=== PATIENT | female | born 1980 | race American Indian/Alaskan Native ===

== ENCOUNTER 2018-06-16 22:29 | Observation (INO) | payer BC, OTHER ==
[~2018-06-16] VITALS: Ht 157.5 cm; Wt 72.6 kg
[~2018-06-16 22:29] MED LIST: CHOLESTEROL MED
[2018-06-16] MEDS ORDERED: METOPROLOL TARTRATE 25 MG TAB PO ONE (22:45)
[2018-06-16] MEDS ORDERED: ASPIRIN 81 MG CHEW TAB PO ONE (22:45)
[2018-06-16] MEDS ORDERED: METOPROLOL TARTRATE 25 MG TAB PO STA (23:29)
[2018-06-16 23:47] LABS: BASOPHILS # (AUTO) 0.1 (0.0-0.1); BASOPHILS % 0.4 % (0.0-1.0); EOSINOPHILS # (AUTO) 0.4 (0.0-0.4); EOSINOPHILS % 2.9 % (0.0-6.0); HEMATOCRIT 34.2 % (34.2-44.1); HEMOGLOBIN 11.4 g/dL (12.0-16.0); LYMPHOCYTES # (AUTO) 3.9 (1.0-3.2); LYMPHOCYTES % 32.7 % (18.0-39.1); MEAN CORPUSCULAR HEMOGLOBIN 27.9 pg (28-32); MEAN CORPUSCULAR HGB CONC 33.3 g/dL (31-35); MEAN CORPUSCULAR VOLUME 83.6 fL (81-99); MONOCYTES # (AUTO) 0.6 (0.2-0.8); MONOCYTES % 4.8 % (4.4-11.3); NEUTROPHILS % 58.9 % (38.7-80.0); PLATELET COUNT 311 x10e3/uL (140-360); RED BLOOD COUNT 4.09 x10e6/uL (3.6-5.1); RED CELL DISTRIBUTION WIDTH 13.2 % (11.7-14.4)
[2018-06-16 23:49] LABS: BILIRUBIN,URINE NEGATIVE (NEGATIVE); CLARITY,URINE CLEAR (CLEAR); COLOR,URINE YELLOW (YELLOW); KETONES,URINE NEGATIVE (NEGATIVE); LEUKOCYTE ESTERASE ,URINE NEGATIVE (NEGATIVE); NITRITE,URINE NEGATIVE (NEGATIVE); PROTEIN,URINE DIPSTICK 3+ (NEGATIVE); URINE UROBILINOGEN 0.2 mg/dL (0.2 - 1)
[2018-06-16 23:50] LABS: PREGNANCY TEST, URINE NEGATIVE (NEGATIVE)
[2018-06-16 23:53] LABS: INR 0.97; PARTIAL THROMBOPLASTIN TIME 30.9 seconds (23.8-35.5); PROTHROMBIN TIME 12.1 seconds (11.9-14.5)
[2018-06-17] VITALS (8 sets, daily range): BP systolic 121–138; BP diastolic 64–82
[2018-06-17] LABS: ALANINE AMINOTRANSFERASE 21 IU/L (0-55); ALBUMIN 3.5 g/dL (3.5-5.0); ALBUMIN/GLOBULIN RATIO 0.8 (0.8-2.0); ALKALINE PHOSPHATASE 95 IU/L (40-150); ANION GAP 16.3 mmol/L (8-16); BLOOD UREA NITROGEN 15 mg/dL (7-26); BUN/CREATININE RATIO 19 (6-25); CALCIUM 9.1 mg/dL (8.4-10.2); CARBON DIOXIDE 21 mmol/L (22-29); CHLORIDE 102 mmol/L (98-107); CREATINE KINASE 117 IU/L (29-168); CREATININE, SERUM 0.77 mg/dL (0.57-1.11); EST GLOMERULAR FILTRATION RATE > 60 ML/MIN (60-); GLUCOSE 237 mg/dL (74-118); MAGNESIUM 1.6 MG/DL (1.3-2.1); POTASSIUM 3.3 mmol/L (3.5-5.1); SODIUM 136 mmol/L (136-145)
[2018-06-17 00:05] LABS: BACTERIA,URINE RARE /HPF; EPITHELIAL CELLS,URINE FEW /LPF; RBC,URINE 0-5 /HPF (0-5); WBC,URINE (MAN) 0-5 /HPF (0-5)
[2018-06-17 00:19] LABS: THYROID STIMULATING HORMONE 10.211 uIU/mL (0.350-4.940)
--- NOTE | 2018-06-17 00:25 | Diagnostic Imaging Report ---
EXAMINATION: CHEST 2 VIEWS INDICATION: Chest pain, palpitations COMPARISON: 02/09/2016 FINDINGS: TUBES and LINES: None. LUNGS: Lungs are well inflated. Lungs are clear. There is no evidence of pneumonia or pulmonary edema. PLEURA: No pleural effusion or pneumothorax. HEART AND MEDIASTINUM: The cardiomediastinal silhouette is unremarkable. BONES AND SOFT TISSUES: No acute osseous lesion. Soft tissues are unremarkable. UPPER ABDOMEN: No free air under the diaphragm. IMPRESSION: No acute thoracic abnormality. Signed by: Dr. John Barajas M.D. on 06/17/2018 12:21 AM
[2018-06-17] MEDS ORDERED: POTASSIUM CHLORIDE 20 MEQ TAB CR PO STA (01:04)
[2018-06-17] MEDS ORDERED: MORPHINE SULFATE 2 MG/ML SYR IV PRN (03:15)
[2018-06-17] MEDS ORDERED: DEXTROSE 50% SYRINGE 50 ML IV PRN (03:15)
[2018-06-17] MEDS ORDERED: FAMOTIDINE 20 MG/2 ML VIAL IV SCH ×2 (03:15→11:00)
[2018-06-17] MEDS ORDERED: ONDANSETRON HCL INJ 2 MG/ML VIAL IV PRN (03:15)
[2018-06-17 03:20] LABS: CREATINE KINASE MB 1.3 ng/mL (0-5.0)
[2018-06-17] MEDS: METOPROLOL TARTRATE 25 MG TAB PO SCH ×2 (09:30→20:41)
[2018-06-17] MEDS: INSULIN REGULAR, HUMAN 100 UNIT/1 ML 3ML VIAL SQ SCH ×4 (09:30→20:36)
[2018-06-17 10:20] LABS: CREATINE KINASE 87 IU/L (29-168)
[2018-06-17] MEDS: FAMOTIDINE 20 MG/2 ML VIAL IV SCH ×2 (10:22→22:00)
[2018-06-17] MEDS ORDERED: LEVOTHYROXINE SODIUM 50 MCG TAB PO ONE (17:00)
[2018-06-17] MEDS: METFORMIN HCL 500 MG TAB PO SCH (17:06)
[2018-06-17] MEDS: ASPIRIN 81 MG ENTERIC COATED PO SCH (17:06)
--- NOTE | 2018-06-17 17:42 | History and Physical ---
She is a 37-year-old female patient who presented to the emergency room with the complaint of chest heaviness and pressure in the chest for 2 days' duration. HISTORY OF PRESENT ILLNESS: Mr. Pa is a 37-year-old female patient with history of diabetes mellitus, hypertension, hyperlipidemia and hypothyroidism who presented to the emergency room with the complaint of retrosternal chest tightness, pressure, pain and palpitation and feeling like her heart is fluttering. The patient was feeling like her heart was racing, and the pain was referring to the back in the intrascapular area. ALLERGIES: NO KNOWN DRUG ALLERGIES. PAST MEDICAL HISTORY: Hypertension, hyperlipidemia, hypothyroidism, diabetes mellitus. REVIEW OF SYSTEMS: Chest tightness and chest pain. The patient also has a cough. SOCIAL HISTORY: Denies smoking and denies using alcohol. FAMILY HISTORY: Hypertension, diabetes mellitus. PHYSICAL EXAMINATION VITAL SIGNS: Temperature 99.3, pulse rate 76, blood pressure 126/68, respirations 22. HEENT: Normocephalic, atraumatic. NECK: No JVD, no lymphadenopathy. LUNGS: Bilateral equal air entry; no rales, no rhonchi. HEART: S1, S2, regular, no murmur, no gallop. ABDOMEN: Soft, bowel sounds present. No organomegaly. NEUROLOGIC: Nonfocal. No neurologic deficit. ADMITTING IMPRESSION AND DIAGNOSIS 1. Chest pain. 2. Diabetes mellitus. 3. Hypertension. 4. Hyperlipidemia. 5. Hypothyroidism. PLAN: The patient will be admitted with the above diagnoses. The patient has a low potassium. Will give potassium supplement. Will start on Lipitor, metoprolol, aspirin, levothyroxine and metformin. Will obtain cardiology consultation with Dr. Pineda for possible stress test tomorrow. Job#: [id number]
[2018-06-17] MEDS ORDERED: ATORVASTATIN 20 MG TAB PO SCH (21:00)
[2018-06-17] MEDS: GUAIFENESIN 600MG/DEXTROMETHORPHAN 30MG TABSR PO SCH (22:00)
[2018-06-18] VITALS: BP 129/80
[2018-06-18 04:00] VITALS: BP 129/62
[2018-06-18 05:26] LABS: BASOPHILS # (AUTO) 0.1 (0.0-0.1); BASOPHILS % 0.5 % (0.0-1.0); EOSINOPHILS # (AUTO) 0.4 (0.0-0.4); HEMOGLOBIN 12.2 g/dL (12.0-16.0); LYMPHOCYTES # (AUTO) 4.7 (1.0-3.2); MEAN CORPUSCULAR HEMOGLOBIN 27.9 pg (28-32); MEAN CORPUSCULAR VOLUME 84.7 fL (81-99); MONOCYTES # (AUTO) 0.6 (0.2-0.8); MONOCYTES % 5.4 % (4.4-11.3); NEUTROPHILS # (AUTO) 4.9 (2.1-6.9); NEUTROPHILS % 45.9 % (38.7-80.0); PLATELET COUNT 317 x10e3/uL (140-360); RED BLOOD COUNT 4.37 x10e6/uL (3.6-5.1); RED CELL DISTRIBUTION WIDTH 13.2 % (11.7-14.4)
[2018-06-18 05:49] LABS: ALANINE AMINOTRANSFERASE 20 IU/L (0-55); ALBUMIN 3.3 g/dL (3.5-5.0); ALBUMIN/GLOBULIN RATIO 0.8 (0.8-2.0); ALKALINE PHOSPHATASE 87 IU/L (40-150); ANION GAP 15.9 mmol/L (8-16); BLOOD UREA NITROGEN 12 mg/dL (7-26); BUN/CREATININE RATIO 16 (6-25); CALCIUM 9.7 mg/dL (8.4-10.2); CARBON DIOXIDE 23 mmol/L (22-29); CHLORIDE 102 mmol/L (98-107); CREATININE, SERUM 0.77 mg/dL (0.57-1.11); EST GLOMERULAR FILTRATION RATE > 60 ML/MIN (60-); GLUCOSE 180 mg/dL (74-118); POTASSIUM 3.9 mmol/L (3.5-5.1); SODIUM 137 mmol/L (136-145)
[2018-06-18] MEDS ORDERED: LEVOTHYROXINE SODIUM 50 MCG TAB PO ONE (06:00)
[2018-06-18 06:12] LABS: CHOLESTEROL 205 MD/DL (0-199); HDL CHOLESTEROL 51 MG/DL (40-60); TRIGLYCERIDES 448 MG/DL (0-149)
[2018-06-18 07:15] VITALS: BP 117/72
[2018-06-18] MEDS: INSULIN REGULAR, HUMAN 100 UNIT/1 ML 3ML VIAL SQ SCH ×2 (07:30→11:30)
--- NOTE | 2018-06-18 07:30 | Consultation ---
DATE OF CONSULTATION: REASON FOR CONSULT: Chest pain. HISTORY OF PRESENT ILLNESS: Ms. Pa is a 37-year-old lady with a past medical history as listed below, apparently developed chest pain about 3 days back. States it lasted for about 15 minutes or so. She also had some palpitations off and on. [place] like her heart is fluttering. Denies any shortness of breath or diaphoresis. She feels better. REVIEW OF SYSTEMS CONSTITUTIONAL: Has some fatigue and weakness. HEENT: No headache, blurring of vision, seizures, syncope. CARDIOVASCULAR: Had chest pain and palpitations noted. No dyspnea, orthopnea or PND. RESPIRATORY: No cough, fever, expectoration. GI: No abdominal pain, vomiting, diarrhea. : No dysuria, frequency or incontinence. ALLERGIES: NO KNOWN DRUG ALLERGIES. MEDICATIONS: See list. PAST MEDICAL HISTORY: History of hypertension, history of hyperlipidemia. SOCIAL HISTORY: Does not smoke or drink. FAMILY HISTORY: Noncontributory. PHYSICAL EXAMINATION GENERAL: Alert and nourished lady. Alert, oriented and not in any obvious distress. VITALS: Heart rate 78, blood pressure 129/80, respiratory rate 18, temperature 97.1. HEENT: Atraumatic. NECK: No JVD, bruits, thyromegaly, or lymphadenopathy. CARDIOVASCULAR: First and 2nd heart sounds heard. No murmurs, rubs or gallops appreciated. CHEST: Clear to auscultation. ABDOMEN: Soft and nontender. EXTREMITIES: No edema. LABS: EKG shows sinus rhythm at 99 beats per minute. Normal axis. Normal intervals. Prolonged QT interval. Nonspecific ST-T changes. Sodium is 137, potassium 3.9, chloride 102, bicarb 23, BUN 12, creatinine 0.7. Hemoglobin is 12.2, hematocrit 37, platelets of 317,000, and white count is 10.6. Troponins are normal. Triglycerides are 448, cholesterol 205, HDL is 51. IMPRESSION 1. Chest pain. 2. Palpitations. 3. Hypertension. 4. Hypothyroidism. 5. New-onset diabetes mellitus. 6. Hyperlipidemia. PLAN 1. Cardiac enzymes are normal. 2. No further episode of chest pain. 3. Will get an echocardiogram to assess LV function and valvular function. 4. Will schedule her for Lexiscan stress test. 5. Continue with current medications. 6. Discussed my impression and plan of management with the patient, and she understands. As always, I appreciate and thank you very much for this referral. Continue with current medications, including aspirin, statin and beta blockers. Job#: [id number] MISTY
[2018-06-18] MEDS: METOPROLOL TARTRATE 25 MG TAB PO SCH (07:45)
[2018-06-18] MEDS: METFORMIN HCL 500 MG TAB PO SCH (07:45)
[2018-06-18] MEDS: GUAIFENESIN 600MG/DEXTROMETHORPHAN 30MG TABSR PO SCH (07:46)
[2018-06-18] MEDS: ASPIRIN 81 MG ENTERIC COATED PO SCH (07:46)
[2018-06-18 08:31] VITALS: BP 117/72
[2018-06-18] MEDS ORDERED: REGADENOSON 0.4 MG/5 ML SYR IV ONE (09:10)
[2018-06-18] MEDS: FAMOTIDINE 20 MG/2 ML VIAL IV SCH (11:04)
[2018-06-18 11:34] VITALS: BP 144/84
--- NOTE | 2018-06-18 13:10 | Discharge Summary ---
This 37-year-old female patient presented to the emergency room with complaint of chest pain. ADMITTING IMPRESSION AND DIAGNOSES 1. Chest pain, rule out angina. 2. Diabetes mellitus. 3. Hyperlipidemia. 4. Hypertension. 5. Bronchitis. HOSPITAL COURSE SUMMARY: The patient was admitted with the above diagnoses. The patient had serial EKGs and cardiac enzymes and cardiology evaluation done by Dr. Pineda. The patient will be getting a stress test today. Depending on the stress test results, the patient will have further course. If the stress test is negative, the patient will be discharged home and will be followed up as an outpatient. The patient will be started on metformin 500 mg twice a day, Lipitor 20 mg once a day, Levoxyl 75 mcg once a day, and losartan 50 mg once a day. LUIS MIGUEL GOODSON MD Job#: [id number]
--- NOTE | 2018-06-25 09:21 | Cardiology Report ---
DATE OF STUDY: June 18, 2018 LEXISCAN NUCLEAR STRESS TEST INDICATIONS: Chest pain. DESCRIPTION OF PROCEDURE: After informed consent, the patient was brought to the stress lab. She was given 10 mCi of technetium-99 Myoview, and myocardial perfusion SPECT images obtained in the horizontal, long and short axis, and vertical axis views. Subsequently, the patient was given 0.4 mg Lexiscan over 10 seconds. Patient was given 30 mCi of technetium-99 Myoview, and myocardial perfusion SPECT image obtained in the horizontal, long and short axis, vertical axis view. Gaited images were true also obtained. Patient tolerated the procedure without any complications. REPORT: Baseline EKG shows 66 beats per minute. Normal axis. Normal intervals. No acute ST-T changes. PARAMETERS 1. Resting heart rate is 98 beats per minute. 2. Maximum heart rate is 129 beats per minute. 3. Resting blood pressure is 115/58 mmHg. 4. Maximum blood pressure 150/61 mmHg. REASON FOR TERMINATION: End-point attained. INTERPRETATION 1. Negative chest pain. 2. Negative for arrhythmias. 3. Blood pressure response consistent with Lexiscan. 4. Borderline ST-T changes seen during Lexiscan infusion compared to baseline. 5. Analysis and SPECT images reveals uniform radioisotope uptake in without any significant perfusion defects. CONCLUSION 1. No evidence of significant ischemia or infarction on this study. 2. No wall motion abnormalities. 3. Overall ejection fraction is 63%. Job#: [id number] MISTY
== END 2018-06-18 13:58 | disposition home or self-care (01) ==
LOC: ER 22:29 → ERHOLD 06-17 03:28 → MED/SURG 06-17 04:17
PROVIDERS: ADMIT Internal Medicine; ATTEND Internal Medicine
DX: R07.9 Chest pain, unspecified (principal); R00.2 Palpitations; E11.65 Type 2 diabetes mellitus with hyperglycemia; I10 Essential (primary) hypertension; E03.9 Hypothyroidism, unspecified; E78.5 Hyperlipidemia, unspecified; E11.9 Type 2 diabetes mellitus without complications; Z91.14 Patient's other noncompliance with medication regimen; J40 Bronchitis, not specified as acute or chronic
CPT/HCPCS: 36415 ×3; 71046; 78452; 80053 ×2; 80061; 81001; 81025; 82550 ×2; 82553 ×2; 82948 ×2; 83036; 83735; 83880; 84443; 84484 ×2; 85025 ×2; 85379; 85610; 85730; 87086; 93005 ×2; 93017; 99284; A9502; G0378 ×2

== ENCOUNTER 2019-05-31 16:41 | Emergency (ER) | payer OTHER ==
[~2019-05-31] VITALS: Ht 157.5 cm; Wt 72.6 kg
[2019-05-31 17:21] LABS: BASOPHILS % 0.4 % (0.0-1.0); EOSINOPHILS # (AUTO) 0.3 (0.0-0.4); EOSINOPHILS % 3.4 % (0.0-6.0); HEMATOCRIT 33.8 % (34.2-44.1); HEMOGLOBIN 11.2 g/dL (12.0-16.0); LYMPHOCYTES # (AUTO) 3.9 (1.0-3.2); LYMPHOCYTES % 44.1 % (18.0-39.1); MEAN CORPUSCULAR HGB CONC 33.1 g/dL (31-35); MEAN CORPUSCULAR VOLUME 81.4 fL (81-99); MONOCYTES # (AUTO) 0.5 (0.2-0.8); MONOCYTES % 5.1 % (4.4-11.3); NEUTROPHILS # (AUTO) 4.2 (2.1-6.9); NEUTROPHILS % 46.8 % (38.7-80.0); PLATELET COUNT 254 x10e3/uL (140-360); RED BLOOD COUNT 4.15 x10e6/uL (3.6-5.1); RED CELL DISTRIBUTION WIDTH 13.7 % (11.7-14.4)
[2019-05-31 17:42] LABS: ALANINE AMINOTRANSFERASE 20 IU/L (0-55); ALBUMIN 3.4 g/dL (3.5-5.0); ALBUMIN/GLOBULIN RATIO 0.9 (0.8-2.0); ALKALINE PHOSPHATASE 99 IU/L (40-150); AMYLASE 58 U/L (25-125); ANION GAP 17.1 mmol/L (8-16); BLOOD UREA NITROGEN 10 mg/dL (7-26); BUN/CREATININE RATIO 13 (6-25); CALCIUM 9.1 mg/dL (8.4-10.2); CARBON DIOXIDE 21 mmol/L (22-29); CHLORIDE 100 mmol/L (98-107); CREATININE, SERUM 0.77 mg/dL (0.57-1.11); EST GLOMERULAR FILTRATION RATE > 60 ML/MIN (60-); GLUCOSE 326 mg/dL (74-118); LIPASE 39 U/L (8-78); MAGNESIUM 1.8 MG/DL (1.3-2.1); POTASSIUM 4.1 mmol/L (3.5-5.1); SODIUM 134 mmol/L (136-145)
[2019-05-31 18:23] LABS: BILIRUBIN,URINE NEGATIVE (NEGATIVE); CLARITY,URINE CLEAR (CLEAR); COLOR,URINE YELLOW (YELLOW); KETONES,URINE NEGATIVE (NEGATIVE); LEUKOCYTE ESTERASE ,URINE NEGATIVE (NEGATIVE); NITRITE,URINE NEGATIVE (NEGATIVE); URINE UROBILINOGEN 0.2 mg/dL (0.2 - 1)
[2019-05-31 18:31] LABS: PROTEIN,URINE DIPSTICK 2+ (NEGATIVE)
[2019-05-31 18:34] LABS: PREGNANCY TEST, URINE NEGATIVE (NEGATIVE)
[2019-05-31 18:35] LABS: BACTERIA,URINE MODERATE /HPF; EPITHELIAL CELLS,URINE MODERATE /LPF; TRANSITIONAL EPI CELLS,URINE FEW; WBC,URINE (MAN) 0-5 /HPF (0-5)
[2019-05-31 18:36] LABS: AMORPHOUS SEDIMENT,URINE MODERATE (FEW)
[2019-05-31] MEDS ORDERED: SODIUM CHLORIDE 0.9% 1000ML 1,000 ML IV SCH (19:45)
[2019-05-31] MEDS ORDERED: INSULIN REGULAR, HUMAN 100 UNIT/1 ML 3ML VIAL IV ONE (19:45)
[2019-05-31] MEDS ORDERED: DOXYCYCLINE HY100 MG PO (20:23)
[2019-05-31] MEDS ORDERED: FLAGYL500 MG PO (20:23)
[2019-05-31] MEDS ORDERED: CEFTRIAXONE SOD 1 GM/NS 50 ML 50 ML IV ONE (20:30)
[2019-05-31 21:36] VITALS: BP 139/94
== END 2019-05-31 21:30 | disposition home or self-care (01) ==
LOC: ER 16:41
DX: R10.30 Lower abdominal pain, unspecified (principal); N89.8 Other specified noninflammatory disorders of vagina; I10 Essential (primary) hypertension; E11.9 Type 2 diabetes mellitus without complications; E78.5 Hyperlipidemia, unspecified; Z79.84 Long term (current) use of oral hypoglycemic drugs; Z83.3 Family history of diabetes mellitus; Z82.49 Family history of ischemic heart disease and other diseases of the circulatory system
CPT/HCPCS: 36415; 80053; 81001; 81025; 82150; 82948; 83690; 83735; 85025; 87086; 99283; J0696; J7030; J1817